=== PATIENT | male | born 1970 | race African-American/Black ===

== ENCOUNTER 2022-04-23 10:51 | Emergency (ER) | payer OTHER ==
[~2022-04-23] VITALS: Ht 175.3 cm; Wt 66.0 kg
[2022-04-23 11:00] VITALS: BP 136/88
[2022-04-23] MEDS ORDERED: IBUP-2029 MT (13:29)
== END 2022-04-23 13:42 | disposition home or self-care (01) ==
LOC: ER 10:51
DX: S16.1XXA Strain of muscle, fascia and tendon at neck level, initial encounter (principal); R51.9 Headache, unspecified; V43.52XA Car driver injured in collision with other type car in traffic accident, initial encounter; Y93.89 Activity, other specified; Y92.488 Other paved roadways as the place of occurrence of the external cause
CPT/HCPCS: 99283